=== PATIENT | female | born 1995 | race Caucasian/White ===

== ENCOUNTER 2016-04-03 16:00 | Inpatient (IN) | payer OTHER ==
[~2016-04-03] VITALS: Ht 154.9 cm; Wt 68.6 kg
[2016-04-03] MEDS ORDERED: LIDOCAINE 1% (MPF) 30 ML INJ INJ PRN (17:00)
[2016-04-03] MEDS ORDERED: LACTATED RINGER'S 1,000 ML IV PRN (17:00)
[2016-04-03] MEDS ORDERED: MISOPROSTOL 200 MCG TAB PR PRN (17:00)
[2016-04-03] MEDS ORDERED: OXYTOCIN 30 UNITS/LR 500 ML IV PRN (17:00)
[2016-04-03] MEDS ORDERED: CARBOPROST 250 MCG INJ IM PRN (17:00)
[2016-04-03] MEDS ORDERED: BUTORPHANOL 2 MG INJ IV PRN (17:00)
[2016-04-03] MEDS ORDERED: METHYLERGONOVINE 0.2 MG INJ IM PRN (17:00)
[2016-04-03] MEDS ORDERED: OXYTOCIN 30 UNITS/LR 500 ML IV SCH ×2 (17:00)
[2016-04-03] MEDS ORDERED: AMPICILLIN 2 GM/NS (PMX) 100 ML IV ONE (17:00)
[2016-04-03 17:06] VITALS: Ht 154.9 cm; Wt 68.6 kg
[2016-04-03] MEDS: LACTATED RINGER'S 1,000 ML IV SCH (17:25)
[2016-04-03 17:33] LABS: EOSINOPHILS # 0.1 10^3/ul (0.0-0.5); EOSINOPHILS % 0.9 % (0.0-7.0); HEMATOCRIT 35.8 % (37.0-47.0); HEMOGLOBIN 12.1 g/dl (12.0-16.0); LYMPHOCYTES # 1.6 10^3/ul (0.8-2.9); LYMPHOCYTES % 20.5 % (18.0-55.0); MEAN CORPUSCULAR HEMOGLOBIN 30.4 pg (29.0-33.0); MEAN CORPUSCULAR HGB CONC 33.7 g/dl (32.0-37.0); MEAN CORPUSCULAR VOLUME 90.3 fl (72.0-104.0); MEAN PLATELET VOLUME 8.5 fl (7.4-10.4); MONOCYTE # 0.8 10^3/ul (0.3-0.9); MONOCYTES % 10.8 % (0.0-13.0); NEUTROPHIL # 5.2 10^3/ul (1.6-7.5); NEUTROPHILS % 67.8 % (30.0-74.0); PLATELET COUNT 236 10^3/UL (140-440); RED BLOOD COUNT 3.96 10^6/ul (4.20-5.40); RED CELL DISTRIBUTION WIDTH 14.4 % (11.5-14.5); UNCORRECTED WBC 7.7 10^3/ul (4.8-10.8); WHITE BLOOD COUNT 7.7 10^3/ul (4.8-10.8)
[2016-04-03 17:44] LABS: INR 0.93; PROTIME 12.5 Sec (12.2-14.2)
[2016-04-03 17:45] LABS: PARTIAL THROMBOPLASTIN TIME 27.6 Sec (25.0-35.0)
[2016-04-03 18:01] LABS: CONDITION 1
[2016-04-03] MEDS ORDERED: DINOPROSTONE 10 MG VAG SUPP VAG ONE (18:30)
[2016-04-03 20:19] VITALS: BP 113/60; PULSE 91; RESP 16
[2016-04-03] MEDS: AMPICILLIN 1 GM/NS (PMX) 50 ML IV SCH (20:59)
[2016-04-03 23:36] LABS: ALANINE AMINOTRANSFERASE 20 IU/L (13-69); ASPARTATE AMINO TRANSFERASE 33 IU/L (15-46)
[2016-04-04] MEDS ORDERED: ACETAMINOPHEN 325 MG TAB PO PRN
[2016-04-04] MEDS ORDERED: ACETAMINOPHEN 325 MG TAB PO ONE
[2016-04-04] MEDS: AMPICILLIN 1 GM/NS (PMX) 50 ML IV SCH ×6 (01:32→22:10)
[2016-04-04] MEDS: LACTATED RINGER'S 1,000 ML IV SCH ×3 (01:33→20:41)
[2016-04-04] MEDS: ACETAMINOPHEN 325 MG TAB PO PRN ×3 (09:21→23:06)
[2016-04-04] MEDS ORDERED: OXYTOCIN 30 UNITS/LR 500 ML IV SCH (10:30)
[2016-04-04] MEDS ORDERED: FENTAnyl 50 MCG/ML VIAL ONE (21:23)
[2016-04-04] MEDS ORDERED: FENTAnyl 2MCG/ML-ROPIV 0.2% 100 ML ONE (21:24)
[2016-04-04] MEDS ORDERED: NALOXONE (0.4 MG/ML) INJ IV PRN (22:00)
[2016-04-05] MEDS: AMPICILLIN 1 GM/NS (PMX) 50 ML IV SCH ×4 (01:05→12:54)
[2016-04-05] MEDS: LACTATED RINGER'S 1,000 ML IV SCH ×3 (01:05→13:07)
[2016-04-05] MEDS: FENTAnyl 2MCG/ML-ROPIV 0.2% 100 ML BAG EPI SCH ×2 (05:34→13:41)
[2016-04-05] MEDS: ACETAMINOPHEN 325 MG TAB PO PRN ×2 (08:13→16:43)
[2016-04-05 12:57] LABS: RUBELLA ANTIBODY - IGG 2.88
--- NOTE | 2016-04-05 16:36 | LDN ---
Date/Time of Note Date/Time of Note DATE: 04/05/16 TIME: 16:27 Delivery Summary Normal spontaneous vaginal delivery of a baby girl from DEVONTE position ,shoulders delivered without any difficulty ,then the rest of the baby,s body followed , nasal oral pharyngeal's suction performed, cord clamped after pulsations stopped then baby handed to the team for immediate attention, placenta spontaneous expulsion inspected complete, patient sustained small vaginal laceration which repaired with single 2-0 chromic catgut suture, estimated blood loss 200 mL Placenta Delivered: Spontaneously Meconium: none Perineum intact?: No Anesthesia type: Epidural Estimated blood loss: 200 Sponge & Needle done & correct: Yes All needle counts correct: Yes Any foreign bodies felt in the: No Problems: Infant Delivery Information Sex Sex: female Apgars 1 Minute: 9 5 Minute: 9 Suctioning Nose & mouth suctioned at cristofer: Yes Delee suction performed: No Umbilical Cord Umbilical cord with: 3 Vessels Cord presentations: no nuchal cord Cord Blood was obtained: Yes OLIVIA NICHOLSON MD Apr 05, 2016 16:36
--- NOTE | 2016-04-05 16:45 | HP ---
Date/Time of Note Date/Time of Note DATE: 04/05/16 TIME: 16:36 OB - History Hx of Present Free Text/Dictation This is a 20 years old female 1 para 0 with a EDC of April admitted to [facility] at 38 weeks 2 days for induction of labor due to diagnosis of cholestasis of patient underwent Cervidil induction which may be followed with Pitocin infusion and cervical dilatation is a 2-3 cm on admission pelvic examination carried out findings are as follows ,cervix long and closed vertex presentation at -1 -2 station, heart rate category 1 History of present see record Past history unremarkable Review of system within normal Estimated Due Date: Apr 17, 2016 : 1 Para: 0 Care: Good Care Ultrasounds: Normal mid trimester US Obstetrical Complications: None Medical Complications: None Past Family/Social History * Past Medical, Surgical, Family and Obstetric Histories reviewed from chart. Rubella: immune RPR/VDRL: Negative GBS Status: Negative HBsAG: Negative OB Admission Exam Vital Signs Vital Signs Vital Signs Date Time Temp Pulse Resp B/P Pulse Ox O2 Delivery O2 Flow Rate FiO2 04/03/16 20:19 98.0 91 16 113/60 Room Air Last 72 hours Lab Results CBC & BMP 04/03/16 16:59 Liver Function Test 04/03/16 16:59 Alanine Aminotransferase (ALT/SGPT) 20 Aspartate Amino Transf (AST/SGOT) 33 OLIVIA NICHOLSON MD Apr 05, 2016 16:45
[2016-04-05 18:30] VITALS: BP 101/55; PULSE 89; RESP 20
[2016-04-05] MEDS ORDERED: LANOLIN 7 GM TUBE TOP PRN (18:30)
[2016-04-05] MEDS ORDERED: ONDANSETRON 4 MG INJ IV PRN (18:30)
[2016-04-05] MEDS ORDERED: OXYCODONE/ASPIRIN (4.88/325) TAB PO PRN (18:30)
[2016-04-05] MEDS ORDERED: BENZOCAINE 20% 56 ML SPRAY TOP PRN (18:30)
[2016-04-05] MEDS ORDERED: ACETAMINOPHEN 325 MG TAB PO PRN (18:30)
[2016-04-05] MEDS ORDERED: ACETAMINOPHEN/CODEINE #3 TAB PO PRN ×2 (18:30)
[2016-04-05] MEDS ORDERED: DIBUCAINE 1% 30 GM OINT PR PRN (18:30)
[2016-04-05] MEDS ORDERED: WITCH HAZEL/GLYCERIN PAD PR PRN (18:30)
[2016-04-05] MEDS: OXYTOCIN 30 UNITS/LR 500 ML IV SCH ×2 (19:02→22:05)
[2016-04-05 19:45] VITALS: BP 109/60; PULSE 89; RESP 18
[2016-04-05] MEDS: OXYCODONE/ASPIRIN (4.88/325) TAB PO PRN (19:47)
[2016-04-05] MEDS: SENNA/DOCUSATE NA (8.6MG/50MG) TAB PO SCH (21:00)
[2016-04-06] MEDS: IBUPROFEN 600 MG TAB PO SCH ×4 (01:05→17:53)
[2016-04-06] MEDS: OXYCODONE/ASPIRIN (4.88/325) TAB PO PRN (05:11)
[2016-04-06 05:51] VITALS: BP 106/60; PULSE 71; RESP 18
[2016-04-06 08:00] VITALS: BP 109/66; PULSE 84; RESP 18
[2016-04-06] MEDS ORDERED: INFLUENZA VIRUS VACCINE 0.5 ML (DISPENSING) IM* ONE (09:00)
[2016-04-06 09:58] LABS: BASOPHILS % 0.2 % (0.0-2.0); EOSINOPHILS # 0.1 10^3/ul (0.0-0.5); EOSINOPHILS % 0.8 % (0.0-7.0); HEMATOCRIT 28.4 % (37.0-47.0); HEMOGLOBIN 9.9 g/dl (12.0-16.0); LYMPHOCYTES # 1.9 10^3/ul (0.8-2.9); LYMPHOCYTES % 16.9 % (18.0-55.0); MEAN CORPUSCULAR HEMOGLOBIN 31.3 pg (29.0-33.0); MEAN CORPUSCULAR HGB CONC 34.8 g/dl (32.0-37.0); MEAN PLATELET VOLUME 9.1 fl (7.4-10.4); MONOCYTE # 0.9 10^3/ul (0.3-0.9); MONOCYTES % 8.3 % (0.0-13.0); NEUTROPHIL # 8.3 10^3/ul (1.6-7.5); NEUTROPHILS % 73.8 % (30.0-74.0); PLATELET COUNT 160 10^3/UL (140-440); RED BLOOD COUNT 3.16 10^6/ul (4.20-5.40); RED CELL DISTRIBUTION WIDTH 14.4 % (11.5-14.5); UNCORRECTED WBC 11.3 10^3/ul (4.8-10.8); WHITE BLOOD COUNT 11.3 10^3/ul (4.8-10.8)
[2016-04-06 09:59] LABS: CONDITION 1
[2016-04-06] MEDS: SENNA/DOCUSATE NA (8.6MG/50MG) TAB PO SCH ×2 (11:27→21:33)
[2016-04-06 16:00] VITALS: BP 108/53; PULSE 83; RESP 19
[2016-04-06] MEDS: GUAIFENESIN/DM 5ML CUP PO PRN (17:06)
[2016-04-06 20:15] VITALS: BP 105/58; PULSE 86; RESP 18
--- NOTE | 2016-04-06 23:00 | QN ---
Documentation Comment PPD #1 s/p . No c/o. T= 97.8. BP 105/58. Fundus firm Lochia minimal. Ext NT, 1+ edema. WBC 11.3. Hgb 9.9. P: D/c home tomorrow. MARYBETH DUNCAN MD Apr 06, 2016 23:00
[2016-04-07] MEDS: GUAIFENESIN/DM 5ML CUP PO PRN ×2 (00:37→12:17)
[2016-04-07] MEDS: IBUPROFEN 600 MG TAB PO SCH ×4 (00:37→17:46)
[2016-04-07 05:17] VITALS: BP 101/57; PULSE 84; RESP 18
[2016-04-07 08:25] VITALS: BP 85/54; PULSE 90; RESP 17
[2016-04-07] MEDS ORDERED: MEASLES,MUMPS,RUBELLA VACCINE INJ SC* ONE (09:00)
[2016-04-07] MEDS: SENNA/DOCUSATE NA (8.6MG/50MG) TAB PO SCH (09:15)
--- NOTE | 2016-04-07 10:53 | PD.PPDC ---
SOW MANAGER Discharge Instruction Condition Patient Condition: Good Activity/Restrictions Activity: Normal Activity May Shower Restrictions: No Exercising No Lifting No Driving No Sexual Activity Nothing in the Vagina No [place] No Tampons, douche Follow-up Follow-up with Physician: 2, Week/Weeks Return to clinic for [facility] Instructions: Fever greater than 101 Worsening abdominal pain Excessive Vaginal Bleeding More than 2 pads per hour Unable to tolerate diet OB Instructions: Blurried Vision Headache OLIVIA NICHOLSON MD Apr 07, 2016 10:53
--- NOTE | 2016-04-07 10:55 | DS ---
Date/Time of Note Date/Time of Note DATE: 04/07/16 TIME: 10:54 Obstetrical Discharge Record Final Diagnosis Final Diagnosis: Term delivered Vaginal Delivery Obstetrical Delivery: Spontaneous Condition on Discharge Physical Assessment Last Vitals: Day 2 post normal vaginal delivery, afebrile abdomen soft uterus firm lochia normal extremity normal discharged home with follow-up instruction to be seen in the office in 2 weeks Voiding: Yes Bowel Movement: Yes Breast: Soft, non-tender, Filling Fundus: Firm Calf Tenderness: No Patient Condition: Good OLIVIA NICHOLSON MD Apr 07, 2016 10:55
[2016-04-07 15:30] VITALS: BP 90/54; PULSE 73; RESP 16
== END 2016-04-07 18:30 | disposition home or self-care (01) | DRG 775 ==
LOC: L-D 16:22 → PP1 04-05 18:29
PROVIDERS: ADMIT Obstetrics & Gynecology; ATTEND Obstetrics & Gynecology
PROC: 10E0XZZ Delivery of Products of Conception, External Approach (ICD-10-PCS; principal; 2016-04-05)
PROC: 3E033VJ Introduction of Other Hormone into Peripheral Vein, Percutaneous Approach (ICD-10-PCS; 2016-04-05)
PROC: 3E0P7GC Introduction of Other Therapeutic Substance into Female Reproductive, Via Natural or Artificial Opening (ICD-10-PCS; 2016-04-05)
DX: O26.62 Liver and biliary tract disorders in childbirth (principal); K83.1 Obstruction of bile duct; Z3A.38 38 weeks gestation of pregnancy; Z37.0 Single live birth; O99.824 Streptococcus B carrier state complicating childbirth
CPT/HCPCS: 62319; 84450; 84460; 85025; 85610; 85730; 86592; 86703; 86762; 86900; 86901; 87340; 90686; J0290; J2590; J3010; J7120